=== PATIENT | female | born 1980 | race American Indian/Alaskan Native ===

== ENCOUNTER 2021-02-28 19:36 | Emergency (ER) | payer OTHER ==
[2021-02-28 19:40] VITALS: BP 121/81
--- NOTE | 2021-02-28 20:19 | Emergency Department Report ---
ED General Adult HPI - General Stated complaint: DIZZY, FATIGUE, LOW ABDOMINAL PAIN SORE THROAT Time Seen by Provider: 02/28/21 19:46 ED Review of Systems ROS: Stated complaint: DIZZY, FATIGUE, LOW ABDOMINAL PAIN SORE THROAT Other details as noted in HPI ED Course Vital Signs 02/28/21 19:39 Temperature 98.2 F Pulse Rate 101 H Respiratory 16 Rate Blood Pressure 121/81 O2 Sat by Pulse 98 Oximetry Critical care attestation.: If time is entered above; I have spent that time in minutes in the direct care of this critically ill patient, excluding procedure time. ED Disposition Condition: Stable
--- NOTE | 2021-02-28 20:35 | Emergency Department Report ---
<FINA FRYE - Last Filed: 03/01/21 02:44> ED General Adult HPI - General Stated complaint: DIZZY, FATIGUE, LOW ABDOMINAL PAIN SORE THROAT Time Seen by Provider: 02/28/21 19:46 - History of Present Illness Initial comments: 40-year-old F [place] female presents emergency department with a myriad of issues complaining of possibly having a low iron level she has been experiencing some progressive worsening fatigue over the last year. Reports no no bleeding to her knowledge reports no fever, chills, sweats no chest pain palpitation no nausea but did have 1 vomiting episode yesterday. She also did have an irritation to her throat for 3days with no chest pain or palpitations. -: Gradual Radiation: non-radiation Quality: dull Consistency: constant Improves with: none Worsens with: none Associated Symptoms: denies other symptoms Treatments Prior to Arrival: none - Related Data Allergies Allergy/AdvReac Type Severity Reaction Status Date / Time No Known Allergies Allergy Verified 02/28/21 20:46 ED Review of Systems Comment: All other systems reviewed and negative ED Physical Exam - General General appearance: alert, in no apparent distress - Head Head exam: Present: atraumatic, normocephalic - Eye Eye exam: Present: normal appearance, PERRL Pupils: Present: normal accommodation - ENT ENT exam: Present: normal exam, normal orophraynx, mucous membranes moist, TM's normal bilaterally - Neck Neck exam: Present: normal inspection, full ROM - Respiratory Respiratory exam: Present: normal lung sounds bilaterally. Absent: respiratory distress, wheezes, rales, chest wall tenderness, accessory muscle use - Cardiovascular Cardiovascular Exam: Present: regular rate, normal rhythm. Absent: systolic murmur, diastolic murmur, rubs, gallop - GI/Abdominal GI/Abdominal exam: Present: soft, normal bowel sounds - Extremities Exam Extremities exam: Present: normal inspection, full ROM, normal capillary refill - Back Exam Back exam: Present: normal inspection. Absent: CVA tenderness (R), CVA tenderness (L) - Neurological Exam Neurological exam: Present: alert, oriented X3, CN II-XII intact, normal gait - Psychiatric Psychiatric exam: Present: normal affect, normal mood - Skin Skin exam: Present: warm, dry, intact, normal color. Absent: rash ED Medical Decision Making - Lab Data Result diagrams: 02/28/21 20:39 02/28/21 20:39 - Medical Decision Making Problem 1 pharyngitis 40-year-old female with no history of any compromised nontoxic appearance patient is euvolemic with no trismus no airway compromise unable to tolerate p.o. given history and examination low suspicion for this presentation being caused by peritonsillar abscess, Nirmal, bacterial tracheitis, acute HIV, epiglottitis, retropharyngeal abscess. P problem 2 fatigue 40-year-old female department complaining of weakness. Reports deny any urgent or emergent medical condition. Does have anemia of stable vital signs. No evidence of any cardiovascular compromise. Low suspicion for orthostatic syncope given lack of dehydration, no evidence of acute life-threatening hemorrhage. Presentation not consistent with seizures given short course, no postictal state, no seizure activity. Low suspicion for acute neurologic catastrophe is to include intracranial cranial hemorrhage given lack of trauma, risk factors for bleeding diathesis. Low suspicion for vascular catastrophe to include PE, thoracic aortic dissection, AAA rupture. The presentation consistent not consistent with acute life-threatening arrhythmia, structural heart disease, electrical conduction abnormalities or ACS. However given age cardio risk factor factors and history and physical will work-up and admit to te lemetry ED Disposition Clinical Impression: Anemia Disposition: 01 HOME / SELF CARE / HOMELESS Is pt being admited?: No Does the pt Need Aspirin: No Condition: Good Instructions: Complete Blood Count, Ferritin Test, Blood Transfusion, Adult, Care After, [id number], Hematocrit Test Referrals: PRIMARY CAREMD [Primary Care Provider] - 3-5 Days [facility] [Provider Group] - 3-5 Days Forms: Work/School Release Form(ED) <OLIMPIA LÓPEZ - Last Filed: 03/02/21 01:34> ED Review of Systems ROS: Stated complaint: DIZZY, FATIGUE, LOW ABDOMINAL PAIN SORE THROAT Other details as noted in HPI ED Course Vital Signs 02/28/21 19:39 Temperature 98.2 F Pulse Rate 101 H Respiratory 16 Rate Blood Pressure 121/81 O2 Sat by Pulse 98 Oximetry ED Medical Decision Making - Lab Data Result diagrams: 02/28/21 20:39 02/28/21 20:39 Critical care attestation.: If time is entered above; I have spent that time in minutes in the direct care of this critically ill patient, excluding procedure time. ED Disposition Is pt being admited?: No Does the pt Need Aspirin: No
[2021-02-28 21:02] LABS: Basophils % (Auto) 0.4 % (0.0-1.8); Eosinophils % (Auto) 0.6 % (0.0-4.3); Hematocrit 27.6 % (30.3-42.9); Hemoglobin 8.1 gm/dl (10.1-14.3); Lymphocytes # (Auto) 2.6 K/mm3 (1.2-5.4); Lymphocytes % (Auto) 35.4 % (13.4-35.0); Mean Corpuscular HGB Conc 29 % (30-34); Mean Corpuscular Volume 68 fl (79-97); Monocytes # (Auto) 0.7 K/mm3 (0.0-0.8); Monocytes % (Auto) 9.6 % (0.0-7.3); Platelet Count 461 K/mm3 (140-440); Red Blood Count 4.06 M/mm3 (3.65-5.03); Red Cell Distribution Width 19.4 % (13.2-15.2)
[2021-02-28 21:20] LABS: Blood Urea Nitrogen 13 mg/dL (7-17); Calcium 9.3 mg/dL (8.4-10.2); Hemolysis Index 0
[2021-02-28 21:32] LABS: BUN/Creatinine Ratio 19
[2021-03-01 01:16] LABS: Bilirubin,Urine NEG (Negative); Blood,Urine NEG (Negative); Color,Urine Yellow (Yellow); Mucus,Urine 2+ /HPF
[2021-03-01 01:19] LABS: HCG Qualitative,Urine Negative (Negative)
== END 2021-03-01 03:55 | disposition home or self-care (01) ==
LOC: ED 19:36
DX: D64.9 Anemia, unspecified (principal)
CPT/HCPCS: 36415; 80048; 81001; 81025; 85025; 99282; 99283